=== PATIENT | female | born 1950 ===

== ENCOUNTER → 2021-03-30 09:37 | Outpatient (CLI) | payer BC, SELFPAY ==
[2021-03-30 19:05] LABS: Add Manual Diff / Slide Review NO; Basophils Absolute Auto 0 /uL (0-100); Basophils Percent Auto 0.9 % (0-2); Cholesterol 302 mg/dL (140-199); Eosinophils Absolute Auto 100 /uL (0-450); HDL Cholesterol 77 mg/dL (40-60); Hematocrit 35.8 % (36-46); Hemoglobin A1C% w Est Avg Glu 5.1 % (4.0-6.0); LDL Cholesterol Calculated 197 mg/dL (<100); Lymphocytes Absolute Auto 1200 /uL (1100-4500); Lymphocytes Percent Auto 20.9 % (25-40); Mean Corpuscular HGB Conc 33.6 % (30-36); Mean Corpuscular Hemoglobin 29.5 PG (26-34); Mean Corpuscular Volume 87.7 fL (80-100); Monocytes Absolute Auto 600 /uL (0-900); Monocytes Percent Auto 10.2 % (3-14); Neutrophils Absolute Auto 3700 /uL (1500-7000); Platelet Count 200 X10^3/uL (150-400); Red Blood Cell Count 4.08 X10^6/uL (4.0-5.2); Red Cell Distribution Width 14.4 % (11.6-14.8); Triglycerides 139 mg/dL (35-150); VLDL Cholesterol Calculated 28 mg/dL (2-30); White Blood Cell Count 5.5 X10^3/uL (4.5-11.0)
[2021-03-30 19:38] LABS: Ferritin 11 ng/mL (11-264)
[2021-03-31 06:12] LABS: Triiodothyronine T3 Total 87 ng/dL (71-180)
[2021-03-31 10:07] LABS: Homocysteine 14.5 umol/L (0.0-19.2)
[2021-04-01 11:45] LABS: N-Telopeptide 22.3 nmol BCE/L (6.2-19.0)
[2021-04-02 13:59] LABS: Triiodothyronine T3 Reverse 14.1 ng/dL (9.2-24.1)
== END ==
PROVIDERS: Obstetrics & Gynecology; PCP Physician Assistant; Visit Provider Internal Medicine Cardiovascular Disease
DX: E72.12 Methylenetetrahydrofolate reductase deficiency (principal); D64.9 Anemia, unspecified; E03.9 Hypothyroidism, unspecified
CPT/HCPCS: 80061; 82523; 82542; 82728; 83036; 83090; 84480; 84482; 85025

== ENCOUNTER → 2021-10-05 13:06 | Outpatient (CLI) | payer BC, SELFPAY ==
[2021-10-05 18:27] LABS: Add Manual Diff / Slide Review NO; Basophils Absolute Auto 0 /uL (0-100); Basophils Percent Auto 0.2 % (0-2); Eosinophils Absolute Auto 100 /uL (0-450); Eosinophils Percent Auto 1.8 % (2-4); Hematocrit 38.1 % (36-46); Hemoglobin 13.1 g/dL (12.0-16.0); Lymphocytes Absolute Auto 1000 /uL (1100-4500); Lymphocytes Percent Auto 18.8 % (25-40); Mean Corpuscular HGB Conc 34.5 % (30-36); Mean Corpuscular Hemoglobin 29.9 PG (26-34); Mean Corpuscular Volume 86.8 fL (80-100); Monocytes Absolute Auto 400 /uL (0-900); Monocytes Percent Auto 7.6 % (3-14); Neutrophils Absolute Auto 3600 /uL (1500-7000); Neutrophils Percent Auto 71.6 % (50-75); Platelet Count 159 X10^3/uL (150-400); Red Blood Cell Count 4.39 X10^6/uL (4.0-5.2); Red Cell Distribution Width 13.9 % (11.6-14.8); White Blood Cell Count 5.1 X10^3/uL (4.5-11.0)
[2021-10-07 05:42] LABS: Homocysteine 12.8 umol/L (0.0-19.2)
[2021-10-07 06:06] LABS: Triiodothyronine T3 Total 156 ng/dL (71-180)
[2021-10-12 16:08] LABS: N-Telopeptide 13.7 nmol BCE/L (6.2-19.0)
[2021-10-15 15:36] LABS: Triiodothyronine T3 Reverse 6.2 ng/dL (9.2-24.1)
== END ==
PROVIDERS: PCP Physician Assistant
DX: E03.9 Hypothyroidism, unspecified (principal); E72.11 Homocystinuria; E72.12 Methylenetetrahydrofolate reductase deficiency; M85.80 Other specified disorders of bone density and structure, unspecified site
CPT/HCPCS: 82523; 83090; 84480; 84482; 85025